=== PATIENT | male | born 1975 | race Caucasian/White ===

== ENCOUNTER 2018-09-22 21:13 | Emergency (ER) | payer BC, OTHER ==
[~2018-09-22] VITALS: Ht 180.3 cm; Wt 81.6 kg
--- NOTE | 2018-09-22 21:26 | ED Integumentary General ---
General Chief Complaint: Bite-Animal/Human/Insect Stated Complaint: RASH ON L ARM Source: patient Exam Limitations: no limitations History of Present Illness Date Seen by Provider: Sep 22, 2018 Time Seen by Provider: 21:23 Initial Comments To ER by private vehicle with reports of a rash to the left arm. This first noticed in the night last night when he was sleeping, he felt something bite his left arm, he brushed it off and went back to sleep. Upon awakening this morning he had a small red dot. Throughout the course today this reddened area has enlarged with now a purplish center and a red streak going up the arm towards the armpit. No fevers no chills no nausea no malaise or other systemic symptoms. Timing/Duration: just prior to arrival Severity: moderate Associated Symptoms: denies symptoms Allergies and Home Medications Allergies Coded Allergies: No Known Drug Allergies (Unverified , 09/22/18) Patient Home Medication List Home Medication List Reviewed: Yes Review of Systems Review of Systems Constitutional: see HPI EENTM: see HPI Respiratory: no symptoms reported Cardiovascular: no symptoms reported Genitourinary: no symptoms reported Musculoskeletal: no symptoms reported Skin: see HPI Psychiatric/Neurological: No Symptoms Reported Endocrine: No Symptoms Reported Past Somljzs-Umylyv-Xlhjbh Hx Patient Social History Recent Foreign Travel: No Contact w/Someone Who Travel: No Physical Exam Vital Signs Vital Signs - First Documented 09/22/18 21:20 Temp 97.7 Pulse 108 Resp 20 B/P (MAP) 185/102 (129) Pulse Ox 100 O2 Delivery Room Air Capillary Refill : General Appearance: WD/WN, no apparent distress Respiratory: no respiratory distress, no accessory muscle use Neurologic/Psychiatric: alert, normal mood/affect, oriented x 3 Skin: normal color, warm/dry Skin Problem Location: upper extremities Skin Problem Character: other (there is a 4 cm purplish center with about 2 cm of surrounding erythema. In the center of all of this is a small punctum. This is to the medial aspect of the left upper arm with some lymphangitis extending proximally to the axilla. There are no palpable or tender axillary nodes.) Progress/Results/Core Measures Results/Orders My Orders Orders - JASEN VACA APRN Cephalexin Capsule (Keflex Capsule) (09/22/18 21:30) Dexamethasone Injection (Decadron Inject (09/22/18 21:30) Vital Signs/I&O 09/22/18 21:20 Temp 97.7 Pulse 108 Resp 20 B/P (MAP) 185/102 (129) Pulse Ox 100 O2 Delivery Room Air Departure Impression Primary Impression: Brown recluse spider bite Qualified Codes: T63.333A - Toxic effect of venom of brown normaluse spider, assault, initial encounter Disposition: 01 HOME, SELF-CARE Condition: Stable Departure-Patient Inst. Decision time for Depature: 21:25 Referrals: SERA TIDWELL MD (PCP) Primary Care Physician SANGEETA WATSON APRN (Family) Primary Care Physician Patient Instructions: Spider Bites Add. Discharge Instructions: 1. This appears to me to be a true brown recluse envenomation. Unfortunately this is a rather frustrating wound to take care of because there is so little to do that is actually helpful other than time. This will likely take 3-4 weeks to improve and unfortunately it may get larger before it goes away. [place] to be quite painful and don't be alarmed if you develop some nausea, body aches fatigue over the next week or so. These symptoms become severe and U should present to the emergency room. Call Corey Watson tomorrow to make an appointme nt to be seen next week for recheck. Take antibiotics as directed. Apply cool compresses to this area as much as possible for the next 3-4 days. All discharge instructions reviewed with patient and/or family. Voiced understanding. Scripts Cephalexin (Keflex) 500 Mg Capsule 500 MG PO TID, #15 CAP Prov: JASEN VACA APRN 09/22/18 Copy Copies To 1: SANGEETA WATSON APRN, PETER J APRN Sep 22, 2018 21:26
[2018-09-22] MEDS ORDERED: CEPH-507 PO (21:29)
[2018-09-22] MEDS ORDERED: DEXAMETHASONE 10 MG/ML (DECADRON) 1 ML VIAL IM ONE (21:30)
[2018-09-22] MEDS ORDERED: CEPHALEXIN 250 MG (KEFLEX) CAP PO ONE (21:30)
[2018-09-22 21:36] VITALS: BP 167/118
== END 2018-09-22 21:36 | disposition home or self-care (01) ==
LOC: EDUNIT# 21:13 → ER 21:15
DX: T63.331A Toxic effect of venom of brown recluse spider, accidental (unintentional), initial encounter (principal)
CPT/HCPCS: 96372; 99284